=== PATIENT | male | born 1925 | race Caucasian/White ===

== ENCOUNTER 2016-07-05 13:55 | Inpatient (IN) | payer OTHER ==
[~2016-07-05] VITALS: Ht 185.4 cm; Wt 87.2 kg
--- NOTE | 2016-07-05 16:21 | ED CLINICAL REPORT ---
Clinical Report - Physicians/Mid Levels [facility] [address] [place] [address] 07/05/2016 13:59 Patient: LAMBERTO DODD Time Seen: 14:03. Arrived- By ambulance. Historian- patient and EMS personnel. Evaluation limited Pt can offer no history due to altered mental status - all history is from EMS, Nursing facility and family and review of old records. History limited by altered mental status and dementia. Physical Exam limited by altered mental status and dementia. HISTORY OF PRESENT ILLNESS Chief Complaint: ABDOMINAL PAIN. At its maximum, severity described as moderate. When seen in the E.D., it was gone. Modifying factors. Not worsened by anything. Not relieved by anything. It is described as "pain". No radiation. It is described as generalized in location. This started just prior to arrival and is still present. It was abrupt in onset and has been waxing/waning. No nausea, vomiting or diarrhea. (CODE STATUS: DNR with Limited Interventions). Similar symptoms previously: None. Recent medical care: The patient was seen recently at another facility in the emergency department and hospitalized. ( Seen at [facility] from April 24 - for Acute ischemic colitis). REVIEW OF SYSTEMS The patient has had constipation and difficulty breathing. No black stools, hematemesis, urinary frequency, bloody stools or fever. No headache or sore throat. He has had difficulty with urination. It has been similar to previous symptoms. He has had skin rash (has chronic right calcaneal lesion). All systems otherwise negative, except as recorded above. PAST HISTORY PCP: Dr Barnhart (at [facility]); Jagdeep Patel PROBLEMS: Paroxysmal Atrial Fibrillation Hypertension. Hyperlipidemia- pure hypertriglyceridemia. Diabetes Mellitus Type 2. Gastroesophageal Reflux Disease. Hypotension episodes. Chronic Kidney Disease (stage 3 per old records).l GERD. Anxiety Reaction. Alzheimer's Disease. COPD - Chronic Obstructive Pulmonary Disease. Rheumatoid Arthritis. Rheumatic Heart Disease with tricuspid insufficiency. Thrombocytopenia. Anemia UTI's with history of BPH and with history bladder neck obstruction Cardiac Pacer "Vascular disorder of the intestines" Gout. ASCVD. Abdominal pain syndromes Polymyalgia Rheumatica Giant Cell Arteritis. 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 Dementia. Medications: ZyrTEC Allergy Oral. Zocor Oral. Zetia Oral. Vitamin B Complex Oral. Tranxene-T Oral. Spiriva HandiHaler Inhalation. ProAir HFA Inhalation. PredniSONE Oral. Potassimin Oral. Plavix Oral. Pantoprazole Sodium Oral. NexIUM Oral. Metoprolol Tartrate Oral. Metoprolol Succinate ER Oral. Lisinopril Oral. Lantus Subcutaneous. Glipizide Oral. Flonase Nasal. Flomax Oral. Ferrous Gluconate Oral. Econazole Nitrate External. Claritin Oral. Aspir-Low Oral. Allopurinol Oral. Allergies: No Known Drug Allergy. SOCIAL HISTORY Former smoker. Residence: [facility] Is a local resident. Resides in a alf. Marital status: . ADDITIONAL NOTES The nursing notes have been reviewed. PHYSICAL EXAM Vital Signs: 07/05/2016 14:06 BP: 79/50. HR: 89. RR: 18. O2 saturation: 100%. Temp: 98 F. Appearance: Lethargic. Patient in moderate distress. Eyes: Pale conjunctivae. Eyes normal inspection. No scleral icterus. ENT: Dry mucous membranes present. No pharyngeal erythema or tonsillar exudate. Neck: Normal inspection. CVS: 2/6 systolic murmur located at the left sternal border. No extra heart sounds. Respiratory: No respiratory distress. Mild rales present bilaterally. Chest nontender. Abdomen: Nontender. No mass. Obese. No rebound tenderness or guarding. Back: No CVA tenderness. Skin: No cyanosis. Skin warm and dry. Pallor. (Right calcaneal area decubitus ulcer). No diaphoresis. Extremities: Bilateral mild edema of the lower extremities. (Right calcaneal area decubitus ulcer). Neuro: Altered mental status: stuporous. Patient responds to pain only. Eyes open spontaneously. Best verbal response: inappropriate speech. Best motor response: localizes to pain. No motor deficit. (moves all 4's equally). LABS, X-RAYS, AND EKG EKG: EKG time: (14:11). Atrial fibrillation (ventricular rate 80). Left anterior fascicular block. RBBB. Non-specific ST segment / T wave abnormalities. The study has been interpreted contemporaneously by me. The EKG appears to be a good tracing. Rhythm Strip #1: Atrial fibrillation. No ectopy. Non-specific ST segment / T-wave abnormalities. Chest X-ray: Infiltrate in the left lung base. Consistent with pneumonia and scarring. Cardiomegaly. (IMPRESSION: 1. Left basilar scarring versus infiltrate. Correlate with outside chest x-rays 2. Mild cardiomegaly 3. CABG and pacemaker). Views: AP (portable). Technique: good. The X-rays were interpreted contemporaneously by me. A comparison with prior films (similar to report of CXR finding done at [facility] on 04/29/2016). Laboratory Tests: UA-Culture if indicated: (LORY: 07/05/2016 15:48) ( [facility] 07/05/2016 16:31) Final results Test Result Flag Units (Reference) URINE COLOR YELLOW URINE APPEARANCE HAZY URINE GLUCOSE NEGATIVE (NEGATIVE) URINE BILIRUBIN NEGATIVE (NEGATIVE) URINE KETONE NEGATIVE (NEGATIVE) URINE SPECIFIC GRAVITY 1.010 (1.010-1.030) URINE PH 5.5 (5.0-8.0) URINE PROTEIN NEGATIVE (NEGATIVE) URINE UROBILINOGEN 0.2 EU/dL (0.2-1.0) URINE NITRITE NEGATIVE (NEGATIVE) URINE BLOOD NEGATIVE (NEGATIVE) URINE LEUK ESTERASE POSITIVE (NEGATIVE) URINE RBC NONE SEEN rbc/hpf (0-1) URINE WBC 50-75 wbc/hpf (0-1) URINE EPITHELIAL CELLS 1-3 EPI/hpf (0-5) URINE BACTERIA NONE SEEN (NONE SEEN) URINE COMMENT CULTURE INDICATED URINE CULTURES ARE SET-UP BASED ON THE FOLLOWING CRITERIA:POSITIVE NITRITEPOSITIVE LEUKOCYTE ESTERASEGREATER THAN 10 WHITE BLOOD CELLSMODERATE (2+) OR GREATER BACTERIA CBC w Diff: (LORY: 07/05/2016 14:09) ( [facility] 07/05/2016 14:54) Final results Test Result Flag Units (Reference) WHITE BLOOD COUNT 8.0 K/uL (4.5-11.5) RED BLOOD COUNT 2.67 L M/uL (4.50-5.90) HEMOGLOBIN 7.3 L gm/dL (13.5-17.5) HEMATOCRIT 22.9 L % (41.0-53.0) MEAN CELL VOLUME 86 fL (80-100) MEAN CORPUSCULAR HGB 28 pg (26-34) MEAN CORPUSCULAR HGB CONC 32 g/dL (31-37) RED CELL DISTRIBUTION WIDTH 15.4 H % (11.6-14.8) PLATELET COUNT 307 K/uL (150-400) NEUTROPHIL % 77.5 H % (50-75) LYMPH % 13.7 L % (25-40) MONO % 6.3 % (3-14) EOSINOPHIL % 2.3 % (0-4) BASOPHIL % 0.2 % (0-2) PT with INR: (LORY: 07/05/2016 14:09) ( [facility] 07/05/2016 15:06) Final results Test Result Flag Units (Reference) INR 1.1 (0.8-1.2) Low Intensity Therapy: INR 1.5-2.0 PT range 18.5-23.1Mod.Intensity Therapy: INR 2.0-3.0 PT range 23.1-31.5High Intensity Therapy: INR 2.5-3.5 PT range 27.4-35.5High Intensity Therapy 2: INR 3.0-4.0 PT range 31.5-39.3 Urine Drug Screen: (LORY: 07/05/2016 15:48) ( [facility] 07/05/2016 16:20) Final results Test Result Flag Units (Reference) AMPHETAMINE/METHAMPHETAMINE NEGATIVE (NEGATIVE) BARBITURATE NEGATIVE (NEGATIVE) BENZODIAZEPINE NEGATIVE (NEGATIVE) CANNABINOID NEGATIVE (NEGATIVE) COCAINE NEGATIVE (NEGATIVE) ECSTASY NEGATIVE (NEGATIVE) METHADONE NEGATIVE (NEGATIVE) OPIATE NEGATIVE (NEGATIVE) The urine drug screen is a qualitative screening test fordrug overdose and abuse. All screen results should beconsidered as presumptive.Drugs screened for are as follows:BenzodiazepinesCocaineAmphetamines/MetamphetaminesTHC (Tetrahydrocannabinol)OpiatesBarbituratesEcstasyMethadonePositive results are unconfirmed. For confirmation, notifythe lab for the specimen to be sent to the reference lab.All confirmations must be performed by a differentmethodology.The ingestion of natural herbal and plant productscontaining Ephedra/Ephedra metabolites can produce in urineone or more substances capable of cross reacting withamphetamine/methamphetamine immunoassays. These testsprovide a preliminary result only. A more specificalternative chemical method must be used to obtain aconfirmed analytical result. BNP: (LORY: 07/05/2016 14:09) ( [facility] 07/05/2016 15:14) Final results Test Result Flag Units (Reference) B-TYPE NATRIURETIC PEPTIDE 78.4 pg/ml (5-100) Lactate, Serum: (LORY: 07/05/2016 15:05) ( [facility] 07/05/2016 15:53) Final results Test Result Flag Units (Reference) LACTIC ACID 1.6 mmol/L (0.4-2.0) CHEM 13 PANEL: (LORY: 07/05/2016 14:09) ( [facility] 07/05/2016 15:18) Final results Test Result Flag Units (Reference) GLUCOSE 248 H mg/dL (70-110) BUN 43 H mg/dL (7-18) CREATININE 1.9 H mg/dL (0.6-1.3) Estimated GFR 35.73 mL/min Estimated GFR- 43.31 mL/min Note: Persistent reduction over 3 months in eGFR<60 mL/min/1.73 m2 defines CKD. Patients with eGFR values>=60 mL/min/1.73 m2 may also have CKD if evidence ofpersistent proteinuria. Additional information may be foundat www.kidney.org. SODIUM 148 H mmol/L (136-145) POTASSIUM 4.1 mmol/L (3.5-5.1) CHLORIDE 114 H mmol/L (98-107) CARBON DIOXIDE 23 mmol/L (21-32) CALCIUM 8.5 mg/dL (8.5-10.1) TOTAL PROTEIN 6.5 g/dL (6.4-8.2) ALBUMIN 2.7 L g/dL (3.3-5.0) BILIRUBIN, TOTAL 0.3 mg/dL (0.0-1.0) ALKALINE PHOSPHATASE 60 U/L (46-116) AST (SGOT) 16 U/L (15-37) ALT (SGPT) 23 U/L (12-78) MAGNESIUM 1.8 mg/dL (1.8-2.4) LIPASE 42 L U/L (73-393) AMYLASE 20 L U/L (25-115) CPK 72 U/L (24-260) TROPONIN I <0.05 ng/mL (0.00-1.5) TROPONIN REFERENCE RANGE:<0.1 NEGATIVE0.1-1.5 INDETERMINANT>1.5 POSITIVE . Bedside Tests: Glucose: moderate hyperglycemia - 326 (performed at bedside). Microbiology: Urine culture ordered. Pulse Oximetry: 07/05/2016 14:06 O2 saturation: 100%. Interpretation: normal. PROGRESS AND PROCEDURES Course of Care: Normal Saline 1 liter IVPB given. Ceftriaxone 2 gm IVP given. Pt is DNR and family wishes comfort measures and IV fluids and possible antibiotics, but no surgery or invasive procedures. I have discussed performing CT of the abdomen, but as this will not change our management, the family elects to hold this for now. 17:29 07/05/16. Pt appears to be noting some discomfort from the Tan - we have a good measure of his UOP now and a sample obtained and will remove the catheter and monitor his symptoms. Family is aware of the seriousness of the situation and the likelihood of mesenteric ischemia causing bowel and ultimately the patients demise, but they insist that the goal should be comfort. Discussed case with hospitalist, (Fetty call returned 16:16). Reviewed test results. Agreed upon treatment plan. Health care provider will see patient in ED. Patient/family counseled. Old medical records ordered. (from [facility]). Transition orders written. Disposition: Admitted to Acute Care. Condition: serious and guarded. CLINICAL IMPRESSION Acute generalized abdominal pain of unknown cause (likely mesenteric ischemia). Chronic Alzheimer's disease. No behavioral disturbance. Acute mental status change with lethargy. , paroxysmal atrial fibrillation with controlled rate. Moderate dehydration. Acute urinary tract infection with cystitis. Chronic, moderately well controlled type 2 diabetes with hyperglycemia. No coma. Severe chronic anemia. Possible bacterial pneumonia. Right calcaneal area decubitus ulcer. (Electronically signed by Varun Garcia DO 07/05/2016 21:49)
--- NOTE | 2016-07-05 16:21 | ED ORDER SUMMARY ---
..... Patient: LAMBERTO DODD OrderSheet [facility] VisitID: [id number] [address] [place] [address] 89y, M Registration Date/Time: 07/05/2016 ORDER SHEET Weight: 81.6 kg (estimated) Allergies: No Known Drug Allergy GENERAL ORDERS: Chest 1V Ur[facility] ([facility] (Ack 14:12 TBergley) (14:52 Sara) Nursing Administrator (Continuous) (14:07/05/2016 [facility] (Ack 14:12 TBergley) (14:15 JSimbeck R.N.) UA-Culture if indicated [facility] ([facility]ck 14:12 TBergley) (14:34 Shannan) Amylase Urgent (14:07/05/2016 [facility] (Ack 14:12 TBergley) (14:15 JSimbeck R.N.) Lipase Urgent (14:07/05/2016 [facility] (Ack 14:12 TBergley) (14:15 JSimbeck R.N.) PT with INR [facility] ([facility]ck 14:12 TBergley) (14:15 JSimbeck R.N.) Cardiac Panel Stat (14:07/05/2016 [facility] (Ack 14:12 TBergley) (14:15 JSimbeck R.N.) Urine Drug Screen Urgent (14:07/05/2016 [facility] (Ack 14:12 TBergley) (14:34 EBharoldo) Lactate, Serum Urgent (14:07/05/2016 [facility] (Ack 14:12 TBergley) (15:04 TBergley) BNP Urgent (14:07/05/2016 PHdechinson DO) (Ack 14:12 TBergley) (14:16 JSimbeck R.N.) NPO (14:07/05/2016 PHutchinson DO) (Ack 14:12 TBergley) (14:15 Jorge Alberto R.N.) EKG - ER Stat (14:08 07/05/2016 [facility] DO) (Ack 14:12 TBergley) (14:15 Annelieseeck R.N.) POC Glucose (14:08 07/05/2016 [facility]) (Ack 14:12 TBergley) (14:34 [facility] Tan Catheter (14:08 07/05/2016 [facility] DO) (Ack 14:12 TBergley) (14:34 [facility] Old Records (from [facility] - d/c summary; H&P) (14:31 07/05/2016 [facility]) (Ack 14:35 TBergley) (16:15 TBergley) Call (Place call to): (Dr Winston) (16:14 07/05/2016 [facility]) (16:15 TBergley) - (Remove Tan) (17:20 07/05/2016 [facility]) (Ack 17:21 TBergley) (17:23 Magalie R.N.) MEDICATION ORDERS: IV FLUIDS: IV NS : initial bolus 250 mL (1000 mL/hr), then 250 mL/hr for X3 (NOW) (14:07 07/05/2016 [facility]) (14:18 Jorge Alberto R.N.) Ceftriaxone IV 2 gm/50mL (NOW) (16:21 07/05/2016 [facility]) (16:27 [facility]) ORDER SHEET NOTES: [Electronically signed by Deborah Sanchez (17:50 07/05/2016)] [Electronically signed by Varun Garcia DO (21:49 07/05/2016)] [Electronically locked/signed by Deborah Sanchez (17:50 07/05/2016)]
--- NOTE | 2016-07-05 16:21 | ED NURSING NOTES ---
Clinical Report - Nurses [facility] [address] [place] [address] 07/05/2016 13:59 Patient: LAMBERTO DODD TRIAGE Triage time 1400. Acuity: LEVEL 3. Chief Complaint: ABDOMINAL PAIN and (bloated). Alert. --14:18 Deborah Sanchez 14:05 07/05/16. BP: 79/50. HR: 89. RR: 18. O2 saturation: 100%. Temp: 98 F. Pain level now 0/10. --14:18 Deborah Sanchez. Weight: 81.6 kg estimated. Height/Length: 71 inches Estimated. BMI: 25.1. --14:05 Deborah Sanchez. Medications Allopurinol Oral. --14:08 Deborah Sanchez Aspir-Low Oral. --14:08 Deborah Sanchez Claritin Oral. --14:08 Deborah Sanchez Econazole Nitrate External. --14:08 Deborah Sanchez Ferrous Gluconate Oral. --14:08 Deborah Sanchez Flomax Oral. --14:09 Deborah Sanchez Flonase Nasal. --14:09 Deborah Sanchez Glipizide Oral. --14:09 Deborah Sanchez Lantus Subcutaneous. --14:09 Deborah Sanchez Lisinopril Oral. --14:09 Deborah Sanchez Metoprolol Succinate ER Oral. --14:09 Deborah Sanchez Metoprolol Tartrate Oral. --14:10 Deborah Sanchez NexIUM Oral. --14:10 Deborah Sanchez Pantoprazole Sodium Oral. --14:11 Deborah Sanchez Plavix Oral. --14:11 Deborah Sanchez Potassimin Oral. --14:11 Deborah Sanchez PredniSONE Oral. --14:11 Deborah Sanchez ProAir HFA Inhalation. --14:11 Deborah Sanchez Spiriva HandiHaler Inhalation. --14:12 Deborah Sanchez Tranxene-T Oral. --14:13 Deborah Sanchez Vitamin B Complex Oral. --14:13 Deborah Sanchez Zetia Oral. --14:13 Deborah Sanchez Zocor Oral. --14:13 Deborah Sanchez ZyrTEC Allergy Oral. --14:13 Deborah Sanchez. Allergies No Known Drug Allergy. --14:14 Deborah Sanchez. History Arrived by EMS. Historian: EMS. This started just prior to arrival. Onset. (1 hours ago). Treatment TENT ASSEMBLER: None. SKIN INTEGRITY ASSESSMENT: Skin integrity risk assessment was performed. Risk factors identified include restricted mobility, non ambulatory, complete positioning assistance and sensory deficit present. NUTRITIONAL RISK ASSESSMENT: The nutritional risk assessment revealed no deficiencies. FUNCTIONAL ASSESSMENT: Functional assessment performed: requires total care with the activities of daily living; communication barrier present- this communication barrier is an ongoing problem; uses wheelchair; cognitive impairment- Alzheimer's disease- this cognitive impairment is an ongoing problem. LEARNING NEEDS ASSESSMENT: The learning needs assessment could not be obtained due to the patient's condition. --14:18 Deborah Sanchez. PROBLEMS: Hypertension. Hyperlipidemia. Diabetes Mellitus Type 2. Gastroesophageal Reflux Disease. Hypotension. Anxiety Reaction. Alzheimer's Disease. COPD - Chronic Obstructive Pulmonary Disease. Rheumatoid Arthritis. Rheumatic Heart Disease. --14:16 Deborah Sanchez. ADDITIONAL SURGERIES: Cardiac Surgery. --14:16 Deborah Sanchez. Interventions ID band on patient. To treatment room. --14:18 Deborah Sanchez. PHYSICAL ASSESSMENT To room via stretcher. Patient gowned. GENERAL / NEURO / PSYCH: Alert. Appears in no acute distress. The patient is disoriented to person, place, time and situation. HEENT: Mucous membranes are pink. RESPIRATORY: Respirations not labored. Breath sounds within normal limits. CVS: Normal sinus rhythm noted. Capillary refill is greater than 2 seconds. GI / : Abdominal distention. Abdomen nontender. Guarding present. SKIN: Skin is warm and dry. --14:18 Deborah Sanchez. NURSING PROGRESS NOTES 14:05 07/05/2016 Site #1 started via IV in the right upper arm with an 20g angiocath, with aseptic technique and good blood return; one attempt. Blood drawn: rainbow set. Labeled in the presence of the patient and sent to the lab. Saline lock flushed with 10 mL saline (Started by THELMA Mccoy). --14:17 Mario Benitez R.N. 14:10 07/05/2016 Started bag #1 250 mL IV Fluids IV NS (Saline); bolus of 250 mL over 15 minute(s) via site #1. Allergies verified and confirmed 5 rights. IV patency established. IV site checked: no pain, redness, or swelling. IV flushed thoroughly pre- and post-medication administration. --14:18 Mario Benitez R.N. Call light placed in reach. Side rails up x 2. Bed placed in lowest position. Brakes of bed on. Patient ready for evaluation- chart flagged. --14:19 Deborah Sanchez ( bedside blood sugar 326). --14:27 Deborah Sanchez The patient is resting quietly. Overall patient status is the same- he states feels the same. --14:46 Deborah Sanchez 14:45 07/05/16. BP: 104/68. HR: 89. RR: 18. O2 saturation: 98%. --14:46 Deborah Sanchez 16:27 07/05/2016 Started 2 gm of Ceftriaxone IVPB in bag #1 50 mL; at 100 mL/hr over 30 minute(s) via site #1; Allergies verified and confirmed 5 rights. IV patency established. IV site checked: no pain, redness, or swelling. IV flushed thoroughly pre- and post-medication administration. --16:27 Deborah Sanchez 16:37 07/05/16. ( H&P unable to be filled out by pt, will have family assist when they return.). --16:38 Sarai Aviles Reassessment after intervention. He is calm. Overall patient status is improved- he states feels the same. Patient waiting for admit bed. --16:57 Deborah Sanchez 16:56 07/05/16. BP: 99/55. HR: 100. RR: 18. O2 saturation: 98%. --16:57 Deborah Sanchez ( Catheter removed. Pt tolerated well.). --17:27 Darius Mills R.N. DISPOSITION / DISCHARGE Condition at departure: improved and stable. Transported via stretcher by transport team. Report was given to a nurse via a phone call. Report included patient's care, treatment, medications, reviewed medication reconcilliation, and condition (including any recent changes or anticipated changes). All questions were answered. Report was acknowledged and care was transferred. Patient's personal items; items were transported with the patient. --17:43 Deborah Sanchez 17:30 07/05/2016 Ceftriaxone IVPB Discontinued: bag #2 completed. Total amount infused: 50 mL. IV patency established. IV site checked: no pain, redness, or swelling. IV flushed thoroughly. --17:50 Deborah Sanchez 17:49 07/05/2016 IV Fluids IV NS Discontinued: STOPPED upon admission. Total amount infused: 1000 mL. IV patency established. IV site checked: no pain, redness, or swelling. IV flushed thoroughly. --17:50 Deborah Sanchez Departure time: 1750. --17:50 Deborah Sanchez. Locked/Released at 07/05/2016 17:50 by Deborah Sanchez,
--- NOTE | 2016-07-05 16:21 | ED CLINICAL REPORT ---
Clinical Report - Physicians/Mid Levels [facility] [address] [address] 07/05/2016 13:59 Patient: LAMBERTO DODD Time Seen: 14:03. Arrived- By ambulance. Historian- patient and EMS personnel. Evaluation limited Pt can offer no history due to altered mental status - all history is from EMS, Nursing facility and family and review of old records. History limited by altered mental status and dementia. Physical Exam limited by altered mental status and dementia. HISTORY OF PRESENT ILLNESS Chief Complaint: ABDOMINAL PAIN. At its maximum, severity described as moderate. When seen in the E.D., it was gone. Modifying factors. Not worsened by anything. Not relieved by anything. It is described as "pain". No radiation. It is described as generalized in location. This started just prior to arrival and is still present. It was abrupt in onset and has been waxing/waning. No nausea, vomiting or diarrhea. (CODE STATUS: DNR with Limited Interventions). Similar symptoms previously: None. Recent medical care: The patient was seen recently at another facility in the emergency department and hospitalized. ( Seen at [facility] from April 24 - for Acute ischemic colitis). REVIEW OF SYSTEMS The patient has had constipation and difficulty breathing. No black stools, hematemesis, urinary frequency, bloody stools or fever. No headache or sore throat. He has had difficulty with urination. It has been similar to previous symptoms. He has had skin rash (has chronic right calcaneal lesion). All systems otherwise negative, except as recorded above. PAST HISTORY PCP: Dr Barhnart (at [facility]); Jagdeep Patel PROBLEMS: Paroxysmal Atrial Fibrillation Hypertension. Hyperlipidemia- pure hypertriglyceridemia. Diabetes Mellitus Type 2. Gastroesophageal Reflux Disease. Hypotension episodes. Chronic Kidney Disease (stage 3 per old records).l GERD. Anxiety Reaction. Alzheimer's Disease. COPD - Chronic Obstructive Pulmonary Disease. Rheumatoid Arthritis. Rheumatic Heart Disease with tricuspid insufficiency. Thrombocytopenia. Anemia UTI's with history of BPH and with history bladder neck obstruction Cardiac Pacer "Vascular disorder of the intestines" Gout. ASCVD. Abdominal pain syndromes Polymyalgia Rheumatica Giant Cell Arteritis. 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 Dementia. Medications: ZyrTEC Allergy Oral. Zocor Oral. Zetia Oral. Vitamin B Complex Oral. Tranxene-T Oral. Spiriva HandiHaler Inhalation. ProAir HFA Inhalation. PredniSONE Oral. Potassimin Oral. Plavix Oral. Pantoprazole Sodium Oral. NexIUM Oral. Metoprolol Tartrate Oral. Metoprolol Succinate ER Oral. Lisinopril Oral. Lantus Subcutaneous. Glipizide Oral. Flonase Nasal. Flomax Oral. Ferrous Gluconate Oral. Econazole Nitrate External. Claritin Oral. Aspir-Low Oral. Allopurinol Oral. Allergies: No Known Drug Allergy. SOCIAL HISTORY Former smoker. Residence: [facility] Is a local resident. Resides in a snf. Marital status: . ADDITIONAL NOTES The nursing notes have been reviewed. PHYSICAL EXAM Vital Signs: 07/05/2016 14:06 BP: 79/50. HR: 89. RR: 18. O2 saturation: 100%. Temp: 98 F. Appearance: Lethargic. Patient in moderate distress. Eyes: Pale conjunctivae. Eyes normal inspection. No scleral icterus. ENT: Dry mucous membranes present. No pharyngeal erythema or tonsillar exudate. Neck: Normal inspection. CVS: 2/6 systolic murmur located at the left sternal border. No extra heart sounds. Respiratory: No respiratory distress. Mild rales present bilaterally. Chest nontender. Abdomen: Nontender. No mass. Obese. No rebound tenderness or guarding. Back: No CVA tenderness. Skin: No cyanosis. Skin warm and dry. Pallor. (Right calcaneal area decubitus ulcer). No diaphoresis. Extremities: Bilateral mild edema of the lower extremities. (Right calcaneal area decubitus ulcer). Neuro: Altered mental status: stuporous. Patient responds to pain only. Eyes open spontaneously. Best verbal response: inappropriate speech. Best motor response: localizes to pain. No motor deficit. (moves all 4's equally). LABS, X-RAYS, AND EKG EKG: EKG time: (14:11). Atrial fibrillation (ventricular rate 80). Left anterior fascicular block. RBBB. Non-specific ST segment / T wave abnormalities. The study has been interpreted contemporaneously by me. The EKG appears to be a good tracing. Rhythm Strip #1: Atrial fibrillation. No ectopy. Non-specific ST segment / T-wave abnormalities. Chest X-ray: Infiltrate in the left lung base. Consistent with pneumonia and scarring. Cardiomegaly. (IMPRESSION: 1. Left basilar scarring versus infiltrate. Correlate with outside chest x-rays 2. Mild cardiomegaly 3. CABG and pacemaker). Views: AP (portable). Technique: good. The X-rays were interpreted contemporaneously by me. A comparison with prior films (similar to report of CXR finding done at [facility] on 04/29/2016). Laboratory Tests: UA-Culture if indicated: (LORY: 07/05/2016 15:48) ( [facility] 07/05/2016 16:31) Final results Test Result Flag Units (Reference) URINE COLOR YELLOW URINE APPEARANCE HAZY URINE GLUCOSE NEGATIVE (NEGATIVE) URINE BILIRUBIN NEGATIVE (NEGATIVE) URINE KETONE NEGATIVE (NEGATIVE) URINE SPECIFIC GRAVITY 1.010 (1.010-1.030) URINE PH 5.5 (5.0-8.0) URINE PROTEIN NEGATIVE (NEGATIVE) URINE UROBILINOGEN 0.2 EU/dL (0.2-1.0) URINE NITRITE NEGATIVE (NEGATIVE) URINE BLOOD NEGATIVE (NEGATIVE) URINE LEUK ESTERASE POSITIVE (NEGATIVE) URINE RBC NONE SEEN rbc/hpf (0-1) URINE WBC 50-75 wbc/hpf (0-1) URINE EPITHELIAL CELLS 1-3 EPI/hpf (0-5) URINE BACTERIA NONE SEEN (NONE SEEN) URINE COMMENT CULTURE INDICATED URINE CULTURES ARE SET-UP BASED ON THE FOLLOWING CRITERIA:POSITIVE NITRITEPOSITIVE LEUKOCYTE ESTERASEGREATER THAN 10 WHITE BLOOD CELLSMODERATE (2+) OR GREATER BACTERIA CBC w Diff: (LORY: 07/05/2016 14:09) ( [facility] 07/05/2016 14:54) Final results Test Result Flag Units (Reference) WHITE BLOOD COUNT 8.0 K/uL (4.5-11.5) RED BLOOD COUNT 2.67 L M/uL (4.50-5.90) HEMOGLOBIN 7.3 L gm/dL (13.5-17.5) HEMATOCRIT 22.9 L % (41.0-53.0) MEAN CELL VOLUME 86 fL (80-100) MEAN CORPUSCULAR HGB 28 pg (26-34) MEAN CORPUSCULAR HGB CONC 32 g/dL (31-37) RED CELL DISTRIBUTION WIDTH 15.4 H % (11.6-14.8) PLATELET COUNT 307 K/uL (150-400) NEUTROPHIL % 77.5 H % (50-75) LYMPH % 13.7 L % (25-40) MONO % 6.3 % (3-14) EOSINOPHIL % 2.3 % (0-4) BASOPHIL % 0.2 % (0-2) PT with INR: (LORY: 07/05/2016 14:09) ( [facility] 07/05/2016 15:06) Final results Test Result Flag Units (Reference) INR 1.1 (0.8-1.2) Low Intensity Therapy: INR 1.5-2.0 PT range 18.5-23.1Mod.Intensity Therapy: INR 2.0-3.0 PT range 23.1-31.5High Intensity Therapy: INR 2.5-3.5 PT range 27.4-35.5High Intensity Therapy 2: INR 3.0-4.0 PT range 31.5-39.3 Urine Drug Screen: (LORY: 07/05/2016 15:48) ( [facility] 07/05/2016 16:20) Final results Test Result Flag Units (Reference) AMPHETAMINE/METHAMPHETAMINE NEGATIVE (NEGATIVE) BARBITURATE NEGATIVE (NEGATIVE) BENZODIAZEPINE NEGATIVE (NEGATIVE) CANNABINOID NEGATIVE (NEGATIVE) COCAINE NEGATIVE (NEGATIVE) ECSTASY NEGATIVE (NEGATIVE) METHADONE NEGATIVE (NEGATIVE) OPIATE NEGATIVE (NEGATIVE) The urine drug screen is a qualitative screening test fordrug overdose and abuse. All screen results should beconsidered as presumptive.Drugs screened for are as follows:BenzodiazepinesCocaineAmphetamines/MetamphetaminesTHC (Tetrahydrocannabinol)OpiatesBarbituratesEcstasyMethadonePositive results are unconfirmed. For confirmation, notifythe lab for the specimen to be sent to the reference lab.All confirmations must be performed by a differentmethodology.The ingestion of natural herbal and plant productscontaining Ephedra/Ephedra metabolites can produce in urineone or more substances capable of cross reacting withamphetamine/methamphetamine immunoassays. These testsprovide a preliminary result only. A more specificalternative chemical method must be used to obtain aconfirmed analytical result. BNP: (LORY: 07/05/2016 14:09) ( [facility] 07/05/2016 15:14) Final results Test Result Flag Units (Reference) B-TYPE NATRIURETIC PEPTIDE 78.4 pg/ml (5-100) Lactate, Serum: (LORY: 07/05/2016 15:05) ( [facility] 07/05/2016 15:53) Final results Test Result Flag Units (Reference) LACTIC ACID 1.6 mmol/L (0.4-2.0) CHEM 13 PANEL: (LORY: 07/05/2016 14:09) ( [facility] 07/05/2016 15:18) Final results Test Result Flag Units (Reference) GLUCOSE 248 H mg/dL (70-110) BUN 43 H mg/dL (7-18) CREATININE 1.9 H mg/dL (0.6-1.3) Estimated GFR 35.73 mL/min Estimated GFR- 43.31 mL/min Note: Persistent reduction over 3 months in eGFR<60 mL/min/1.73 m2 defines CKD. Patients with eGFR values>=60 mL/min/1.73 m2 may also have CKD if evidence ofpersistent proteinuria. Additional information may be foundat www.kidney.org. SODIUM 148 H mmol/L (136-145) POTASSIUM 4.1 mmol/L (3.5-5.1) CHLORIDE 114 H mmol/L (98-107) CARBON DIOXIDE 23 mmol/L (21-32) CALCIUM 8.5 mg/dL (8.5-10.1) TOTAL PROTEIN 6.5 g/dL (6.4-8.2) ALBUMIN 2.7 L g/dL (3.3-5.0) BILIRUBIN, TOTAL 0.3 mg/dL (0.0-1.0) ALKALINE PHOSPHATASE 60 U/L (46-116) AST (SGOT) 16 U/L (15-37) ALT (SGPT) 23 U/L (12-78) MAGNESIUM 1.8 mg/dL (1.8-2.4) LIPASE 42 L U/L (73-393) AMYLASE 20 L U/L (25-115) CPK 72 U/L (24-260) TROPONIN I <0.05 ng/mL (0.00-1.5) TROPONIN REFERENCE RANGE:<0.1 NEGATIVE0.1-1.5 INDETERMINANT>1.5 POSITIVE . Bedside Tests: Glucose: moderate hyperglycemia - 326 (performed at bedside). Microbiology: Urine culture ordered. Pulse Oximetry: 07/05/2016 14:06 O2 saturation: 100%. Interpretation: normal. PROGRESS AND PROCEDURES Course of Care: Normal Saline 1 liter IVPB given. Ceftriaxone 2 gm IVP given. Pt is DNR and family wishes comfort measures and IV fluids and possible antibiotics, but no surgery or invasive procedures. I have discussed performing CT of the abdomen, but as this will not change our management, the family elects to hold this for now. 17:29 07/05/16. Pt appears to be noting some discomfort from the Tan - we have a good measure of his UOP now and a sample obtained and will remove the catheter and monitor his symptoms. Family is aware of the seriousness of the situation and the likelihood of mesenteric ischemia causing bowel and ultimately the patients demise, but they insist that the goal should be comfort. Discussed case with hospitalist, (Fetty call returned 16:16). Reviewed test results. Agreed upon treatment plan. Health care provider will see patient in ED. Patient/family counseled. Old medical records ordered. (from [facility]). Transition orders written. Disposition: Admitted to Acute Care. Condition: serious and guarded. CLINICAL IMPRESSION Acute generalized abdominal pain of unknown cause (likely mesenteric ischemia). Chronic Alzheimer's disease. No behavioral disturbance. Acute mental status change with lethargy. , paroxysmal atrial fibrillation with controlled rate. Moderate dehydration. Acute urinary tract infection with cystitis. Chronic, moderately well controlled type 2 diabetes with hyperglycemia. No coma. Severe chronic anemia. Possible bacterial pneumonia. Right calcaneal area decubitus ulcer. (Electronically signed by Varun Garcia DO 07/05/2016 21:49)
--- NOTE | 2016-07-05 16:21 | ED ORDER SUMMARY ---
..... Patient: LAMBERTO DODD OrderSheet Formerly [facility] VisitID: [id number] [address] [address] [place] [address] 89y, M Registration Date/Time: 07/05/2016 ORDER SHEET Weight: 81.6 kg (estimated) Allergies: No Known Drug Allergy GENERAL ORDERS: Chest 1V Urgent ([facility]:07[facility]05/2016 [facility]) (Ack 14:12 TBergley) (14:52 Sara) Prospecting Observer (Continuous) (14:07/05/2016 [facility]) (Ack 14:12 TBergley) (14:15 JSimbeck R.N.) UA-Culture if indicated Urgent (14:07/05/2016 [facility] Jackson Streetson DO) (Ack 14:12 TBergley) (14:34 Shannan) Amylase Urgent (14:07/05/2016 [facility]) (Ack 14:12 TBergley) (14:15 JSimbeck R.N.) Lipase Urgent (14:07/05/2016 [facility]) (Ack 14:12 TBergley) (14:15 JSimbeck R.N.) PT with INR [facility] ([facility]ck 14:12 TBergley) (14:15 JSimbeck R.N.) Cardiac Panel Stat (14:07/05/2016 [facility] Jackson Streetson DO) (Ack 14:12 TBergley) (14:15 JSimbeck R.N.) Urine Drug Screen Urgent (14:07/05/2016 [facility]) (Ack 14:12 TBergley) (14:34 EBharoldo) Lactate, Serum Urgent (14:07/05/2016 [facility]) (Ack 14:12 TBergley) (15:04 TBergley) BNP Urgent (14:07/05/2016 PH[facility] DO) (Ack 14:12 TBergley) (14:16 JSimbeck R.N.) NPO (14:07/05/2016 PH[facility] DO) (Ack 14:12 TBergley) (14:15 Jorge Alberto R.N.) EKG - ER Stat (14:08 07/05/2016 [facility] DO) (Ack 14:12 TBergley) (14:15 Annelieseeck R.N.) POC Glucose (14:08 07/05/2016 [facility] Jackson Streetson DO) (Ack 14:12 TBergley) (14:[facility] Tan Catheter (14:08 07/05/2016 [facility] DO) (Ack 14:12 TBergley) (14:34 [facility] Old Records (from [facility] - d/c summary; H&P) (14:31 07/05/2016 [facility]) (Ack 14:35 TBergley) (16:15 TBergley) Call (Place call to): (Dr Winston) (16:14 07/05/2016 [facility]) (16:15 TBergley) - (Remove Tan) (17:20 07/05/2016 [facility]) (Ack 17:21 TBergley) (17:23 Magalie R.N.) MEDICATION ORDERS: IV FLUIDS: IV NS : initial bolus 250 mL (1000 mL/hr), then 250 mL/hr for X3 (NOW) (14:07 07/05/2016 [facility]) (14:18 Jorge Alberto R.N.) Ceftriaxone IV 2 gm/50mL (NOW) (16:21 07/05/2016 [facility]) (16:27 [facility]) ORDER SHEET NOTES: [Electronically signed by Deborah Sanchez (17:50 07/05/2016)] [Electronically signed by Varun Garcia DO (21:49 07/05/2016)] [Electronically locked/signed by Deborah Sanchez (17:50 07/05/2016)]
--- NOTE | 2016-07-05 16:27 | DIAGNOSTIC IMAGING REPORT ---
PROCEDURE: XR CHEST 1 VIEW INDICATION: SHORTNESS OF BREATH TECHNIQUE: Portable AP view 02:46 p.m. COMPARISON: None. FINDINGS: Median sternotomy, CABG and dual lead pacemaker. Mild cardiomegaly. Normal pulmonary vascularity. Left basilar scarring versus infiltrate. Thorax is normal. IMPRESSION: 1. Left basilar scarring versus infiltrate. Correlate with outside chest x-rays 2. Mild cardiomegaly 3. CABG and pacemaker
[2016-07-05 18:25] VITALS: BP 104/45
--- NOTE | 2016-07-05 19:21 | Progress Note ---
Subjective General Admission History and Physical Examination Patient Name: Patrick Meng Patient ID: [id number] Admission Date: July 05, 2016 Primary Care Provider: [facility] Attending Physician: Noah Winston M.D. Admitting Physician: Nick Royal M.D. Code Status: No CODE Room: 203 SUBJECTIVE Historian: Family, ER Reliability: non verbal Chief Complaint: Abdominal pain Patient was sent by medic from [facility] History of Present Illness: The patient is a 89-year-old white male with a significant past make a history of who presented to [facility] emergency room on the day of admission secondary abdominal pain. [facility] ER evaluation was consistent with exacerbation of pain related to a potential ischemic mesentery and hypotension. Secondary to the above, the patient was admitted for further evaluation and treatment by Nick Royal M.D. The patient is seen today in the emergency department. Patient is nonverbal. No family members are currently present in the room. A call was attempted to family without a return phone call. Emergency department had conversation with family and much of the history today is reflecting the conversation. Patient has a prior history of ischemic mesentery. Patient was brought here from [facility] due to hypotension. Patient was found to have lower blood pressure than typically noted. Emergency department discussion with the family members. No signs of fever or chills. Patient was initially found with systolic in the 80 range. Patient was given boluses of normal saline. When surrounding her completed. In addition, patient is found to be nonverbal with mental status change in the setting of known Alzheimer dementia. The family members recommended no heroic intervention, Family is elected not to perform invasive or high and procedure imaging.. Rather supportive cares. Monitor. Patient will continue the Rocephin 1 g IV daily. Attempt to return back to [facility] when stable. PAST MEDICAL HISTORY Illnesses: 1. COPD 2. Generalized anxiety disorder 3. Paroxysmal atrial fibrillation. 4. Hypertension. 5. Hypertensive 6. Chronic kidney disease stage III. 7. GERD. 8. Alzheimer dementia. 9. COPD 10. Anemia. 11. Vascular disorder of the testing. 12. Polymyalgia rheumatica. 13. Giant cell arteritis. 14. Myocardial infarct. 15. CVA, unspecified. 16. Peripheral vascular disease Allergies: 1. No Known Drug Allergies Medications: 1. Albuterol MDI 2 inhalations 4 times a day 2. Albuterol nebs 2.5 mg every 6 hours when necessary shortness of breath 3. Zocor. 4. Zetia 5. Zyrtec for allergy. 7. Prednisone by mouth tabs taper. 6. Potassium supplementation 7. Metoprolol tartrate and succinate. 8. Lantus subcutaneous 9. Glipizide. 10. Flonase. 11. Flomax. 12. Lantus subcutaneous. 13. Pantoprazole. 14. Lisinopril 10 mg by mouth daily Surgery: CABG Endoscopy Others Uninformed on surgeries or procedures Injuries: 1. Multiple injuries; uninformed on dates of injuries. Hospitalizations: 1. Recent discharge from [facility]. Patient in [facility] for supportive care FAMILY HISTORY Parents Histories are not known. Other significant family history: None SOCIAL HISTORY 1. Marital Status: 2. Shinto: Unknown 3. Education: uknown 4. Employment History: 5. Occupational health exposures: None known HABITS 1. Tobacco: None 2. Drugs: None 3. Alcohol: None 4. Caffeine: uknown none HEALTH SUPERVISION Item/Test 1. No recent health maintenance IMMUNIZATIONS: 1. Pneumococcal: Unknown 2. Influenza: Unknown 3. Tetanus: Unknown ADVANCED DIRECTIVES: 1. Living well: Yes 2. POLST: None known 3. Code Status: No code 4. Durable Power Mainframe Systems Administrator Health care: Family member, daughter 5. Donor card: No unknown REVIEW OF SYSTEMS Remarkable for those things stated in the history of present illness and past medical history. Seventeen point review of system completed with the following notable findings: General: Fatigue, weakness Respiratory: Shortness of breath, cough, wheezing, asthma/COPD Psychological: Anxiety/panic attacks Constitutional Denies: Chills, Sweats. Physical Exam Vital Signs / I&Os Vital Signs Date Time Temp Pulse Resp B/P Pulse O2 O2 Flow FiO2 Ox Delivery Rate 07/05 1825 98.2 99 16 104/45 97 Room Air General Appearance Mild distress, eyes closed, noisy breathing, mostly moaning, HEENT dry mucous membranes Lungs Clear to auscultation Neck No masses Cardiovascular Normal S1 and S2 Abdomen Protuberant, mildly distended, abdomen is tight Skin No Breakdown Neurological Normal speech LAB Results Laboratory Tests 07/05 07/05 07/05 07/05 1408 1409 1409 1505 Chemistry Plasma Sodium (136 - 145 mmol/L) 148 Plasma Potassium (3.5 - 5.1 mmol/L) 4.1 Plasma Chloride (98 - 107 mmol/L) 114 CO2 (Enzymatic) (21 - 32 mmol/L) 23 BUN (7 - 18 mg/dL) 43 Creatinine (0.6 - 1.3 mg/dL) 1.9 Est GFR ( Amer) (mL/min) 43.31 Est GFR (Non-Af Amer) (mL/min) 35.73 Glucose (70 - 110 mg/dL) 248 Lactic Acid (0.4 - 2.0 mmol/L) 1.6 Plasma Calcium (8.5 - 10.1 mg/dL) 8.5 Plasma Magnesium (1.8 - 2.4 mg/dL) 1.8 Total Bilirubin (0.0 - 1.0 mg/dL) 0.3 AST (15 - 37 U/L) 16 ALT (12 - 78 U/L) 23 Alkaline Phosphatase (46 - 116 U/L) 60 Creatine Kinase (24 - 260 U/L) 72 Troponin (0.00 - 1.5 ng/mL) <0.05 B-Natriuretic Peptide (5 - 100 pg/ml) 78.4 Total Protein (6.4 - 8.2 g/dL) 6.5 Albumin (3.3 - 5.0 g/dL) 2.7 Amylase (25 - 115 U/L) Cancelled 20 Lipase (73 - 393 U/L) Cancelled 42 Coagulation INR (0.8 - 1.2) 1.1 Hematology WBC (4.5 - 11.5 K/uL) 8.0 RBC (4.50 - 5.90 M/uL) 2.67 Hgb (13.5 - 17.5 gm/dL) 7.3 Hct (41.0 - 53.0 %) 22.9 MCV (80 - 100 fL) 86 MCH (26 - 34 pg) 28 RDW (11.6 - 14.8 %) 15.4 Neut % (Auto) (50 - 75 %) 77.5 Lymph % (Auto) (25 - 40 %) 13.7 Mcclain % (Auto) (3 - 14 %) 6.3 Eos % (Auto) (0 - 4 %) 2.3 Baso % (Auto) (0 - 2 %) 0.2 Plt Count, EDTA (150 - 400 K/uL) 307 PUBS MCHC (31 - 37 g/dL) 32 07/05 1548 Toxicology Urine Opiates Screen (NEGATIVE) NEGATIVE Urine Methadone Screen (NEGATIVE) NEGATIVE Ur Barbiturates Screen (NEGATIVE) NEGATIVE U Amphetamin/Meth Scrn (NEGATIVE) NEGATIVE MDMA (Ecstasy) Screen (NEGATIVE) NEGATIVE U Benzodiazepines Scrn (NEGATIVE) NEGATIVE Urine Cocaine Screen (NEGATIVE) NEGATIVE U Cannabinoids Screen (NEGATIVE) NEGATIVE Urines Urine Color YELLOW Urine Appearance HAZY Urine pH (5.0 - 8.0) 5.5 Ur Specific [place] (1.010 - 1.030) 1.010 Urine Protein (NEGATIVE) NEGATIVE Urine Ketones (NEGATIVE) NEGATIVE Urine Blood (NEGATIVE) NEGATIVE Urine Nitrite (NEGATIVE) NEGATIVE Urine Bilirubin (NEGATIVE) NEGATIVE Urine Urobilinogen (0.2 - 1.0 EU/dL) 0.2 Ur Leukocyte Esterase (NEGATIVE) POSITIVE Urine RBC (0 - 1 rbc/hpf) NONE SEEN Urine WBC (0 - 1 wbc/hpf) 50-75 Ur Epithelial Cells (0 - 5 EPI/hpf) 1-3 Urine Bacteria (NONE SEEN) NONE SEEN Urine Glucose (NEGATIVE) NEGATIVE Urine Comment CULTURE INDICATED Microbiology Date/Time Procedure - Status Source Growth 07/06 1547 Urine Culture - RECD URINE CC Imaging Chest x-ray 07/05/2016 1. Left basilar scarring versus infiltrate. Correlate with outside chest x-rays 2. Mild cardiomegaly 3. CABG and pacemaker Assessment and Plan Problem List 1. Abdominal pain Plan Abdominal pain with poor by mouth. Likely related to the ischemic mesentery. A history of CAD and peripheral vascular disease. Unlikely that this will be solved during this hospitalization. Family wants to have supportive care only and no invasive procedures or testing. It will be difficult and challenging for patient to maintain nutrition. May consider liquid diet starting over the next 24 hours Pain control. We'll continue with the Tylenol 650 mg every 4-6 hours for pain. Maintain adequate hydration. Patient will be hydrated and stabilized. Monitor blood pressure, heart rate. Return to nursing facility when stable. 2. Vascular disorder of intestine Plan Likely ischemic changes in the vasculature of the bowel. Patient is at risk for ischemia to the bowel, leading to pathological change. She will should be limited. Until healing occurs. Invasive procedures are not planned at this time. 3. Urinary tract infection Plan Continue with the ceftriaxone 1 g every 24 hours. This can be easily converted to a by mouth drug. No meantime, we'll continue the IV protocol until discharge. Found to have leukoesterase and bacteria in the urine. 4. Altered mental status, unspecified Plan Mental status changes in the setting of illness and dementia. Unclear as to what the patient on his. Patient is clearly not interactive at this time. Illness will need to be stabilized in order to adequately see improvement in the mental status. Once this occurs and we'll assess the status at that time. 5. Dementia Plan Monitor for any further Progressive changes. E&M Codes Rounding: Obsv-Comp/High/[id number]
--- NOTE | 2016-07-05 21:49 | ED MED RECONCILIATION SUMMARY ---
Patient: LAMBERTO DODD Medication Reconciliation Report [facility] VisitID: [id number] [address] [place] [address] 89y, M Registration Date/Time: 07/05/2016 Weight: 81.6 kg Height/Length: 71 in. BMI: 25.1 ALLERGIES: No Known Drug Allergy The patient's Home Medications are listed below: THE FOLLOWING MEDICATIONS NEED TO BE RECONCILED: Allopurinol Oral Aspir-Low Oral Claritin Oral Econazole Nitrate External Ferrous Gluconate Oral Flomax Oral Flonase Nasal Glipizide Oral Lantus Subcutaneous Lisinopril Oral Metoprolol Succinate ER Oral Metoprolol Tartrate Oral NexIUM Oral Pantoprazole Sodium Oral Plavix Oral Potassimin Oral PredniSONE Oral ProAir HFA Inhalation Spiriva HandiHaler Inhalation Tranxene-T Oral Vitamin B Complex Oral Zetia Oral Zocor Oral ZyrTEC Allergy Oral The source(s) of the original Home Medication information: Not obtained. The following Medications were given to the patient in the Emergency Department: IV NS IV Fluids bolus 250 mL over 15 minute(s), administered: 07/05/2016 2:10:00 PM Ceftriaxone [IVPB] IVPB bolus 0, then 2 gm 100 mL/hr, administered: 07/05/2016 4:27:00 PM The following Medications were prescribed to the patient: None.
--- NOTE | 2016-07-05 21:49 | ED DISCHARGE INSTRUCTIONS ---
Patient: LAMBERTO DODD General Instructions [facility] VisitID: [id number] [address] [place] [address] 89y, M Registration Date/Time: 07/05/2016 Acute generalized abdominal pain of unknown cause (likely mesenteric ischemia). Chronic Alzheimer's disease. No behavioral disturbance. Acute mental status change with lethargy. , paroxysmal atrial fibrillation with controlled rate. Moderate dehydration. Acute urinary tract infection with cystitis. Chronic, moderately well controlled type 2 diabetes with hyperglycemia. No coma. Severe chronic anemia. Right calcaneal area decubitus ulcer. (Electronically signed by Varun Garcia DO 07/05/2016 21:49)
--- NOTE | 2016-07-05 21:49 | ED MAR SUMMARY ---
..... Medication Administration Record [facility] [address] [place] [address] Patient: LAMBERTO DODD Visit ID: [id number] 89y, M Weight: 81.6 kg Height/Length: 71 in BMI: 25.1 ALLERGIES: No Known Drug Allergy Start 14:10 07/05/2016 Mario Benitez R.N., Stop 17:49 07/05/2016 Deborah Sanchez, Medication Administered: IV NS (SALINE), Dose: IV Fluids, Bolus: 250 mL over 15 minute(s), Dispensed: 250 mL bag, Site: #1 right upper arm. Medication Ordered: IV NS : initial bolus 250 mL (1000 mL/hr), then 250 mL/hr for X3 (NOW). Start 16:27 07/05/2016 Deborah Sanchez,, Stop 17:30 07/05/2016 Deborah Sanchez, Medication Administered: CEFTRIAXONE [IVPB], Dose: 2 gm IVPB over 30 minute(s), Rate: 100 mL/hr, Dispensed: 50 mL bag, Site: #1 right upper arm. Medication Ordered: Ceftriaxone IV 2 gm/50mL (NOW).
--- NOTE | 2016-07-05 21:49 | ED MED RECONCILIATION SUMMARY ---
Patient: LAMBERTO DODD Medication Reconciliation Report [facility] VisitID: [id number] [address] [place] [address] 89y, M Registration Date/Time: 07/05/2016 Weight: 81.6 kg Height/Length: 71 in. BMI: 25.1 ALLERGIES: No Known Drug Allergy The patient's Home Medications are listed below: THE FOLLOWING MEDICATIONS NEED TO BE RECONCILED: Allopurinol Oral Aspir-Low Oral Claritin Oral Econazole Nitrate External Ferrous Gluconate Oral Flomax Oral Flonase Nasal Glipizide Oral Lantus Subcutaneous Lisinopril Oral Metoprolol Succinate ER Oral Metoprolol Tartrate Oral NexIUM Oral Pantoprazole Sodium Oral Plavix Oral Potassimin Oral PredniSONE Oral ProAir HFA Inhalation Spiriva HandiHaler Inhalation Tranxene-T Oral Vitamin B Complex Oral Zetia Oral Zocor Oral ZyrTEC Allergy Oral The source(s) of the original Home Medication information: Not obtained. The following Medications were given to the patient in the Emergency Department: IV NS IV Fluids bolus 250 mL over 15 minute(s), administered: 07/05/2016 2:10:00 PM Ceftriaxone [IVPB] IVPB bolus 0, then 2 gm 100 mL/hr, administered: 07/05/2016 4:27:00 PM The following Medications were prescribed to the patient: None.
--- NOTE | 2016-07-05 21:49 | ED DISCHARGE INSTRUCTIONS ---
Patient: LAMBERTO DODD General Instructions [facility] VisitID: [id number] [address] [address] 89y, M Registration Date/Time: 07/05/2016 Acute generalized abdominal pain of unknown cause (likely mesenteric ischemia). Chronic Alzheimer's disease. No behavioral disturbance. Acute mental status change with lethargy. , paroxysmal atrial fibrillation with controlled rate. Moderate dehydration. Acute urinary tract infection with cystitis. Chronic, moderately well controlled type 2 diabetes with hyperglycemia. No coma. Severe chronic anemia. Right calcaneal area decubitus ulcer. (Electronically signed by Varun Garcia DO 07/05/2016 21:49)
--- NOTE | 2016-07-05 21:49 | ED MAR SUMMARY ---
..... Medication Administration Record [facility] [address] [place] [address] Patient: LAMBERTO DODD Visit ID: [id number] 89y, M Weight: 81.6 kg Height/Length: 71 in BMI: 25.1 ALLERGIES: No Known Drug Allergy Start 14:10 07/05/2016 Mario Benitez R.N., Stop 17:49 07/05/2016 Deborah Sanchez, Medication Administered: IV NS (SALINE), Dose: IV Fluids, Bolus: 250 mL over 15 minute(s), Dispensed: 250 mL bag, Site: #1 right upper arm. Medication Ordered: IV NS : initial bolus 250 mL (1000 mL/hr), then 250 mL/hr for X3 (NOW). Start 16:27 07/05/2016 Deborah Sanchez,, Stop 17:30 07/05/2016 Deborah Sanchez, Medication Administered: CEFTRIAXONE [IVPB], Dose: 2 gm IVPB over 30 minute(s), Rate: 100 mL/hr, Dispensed: 50 mL bag, Site: #1 right upper arm. Medication Ordered: Ceftriaxone IV 2 gm/50mL (NOW).
[2016-07-05 23:05] VITALS: BP 112/50
[2016-07-06] VITALS (14 sets, daily range): BP systolic 95–161; BP diastolic 47–83
--- NOTE | 2016-07-06 07:08 | Progress Note ---
Subjective General Note Date: July 06, 2016 Admission Date: July 05, 2016 Hospital Day: 2 PCP: Jagdeep Castañeda M.D. Status: Observation, ACU Advanced Directive: NO CODE Room: 203-A Brief History: The patient is a 89-year-old white male with a significant past make a history of who presented to [facility] emergency room on the day of admission secondary abdominal pain. [facility] ER evaluation was consistent with exacerbation of pain related to a potential ischemic mesentery and hypotension. Secondary to the above, the patient was admitted for further evaluation and treatment by Nick Royal M.D. For other history present illness, past medical history, family history, social history, review of systems, and admission physical examination please see the patient's history and physical examination and ER visit note in the patient's medical record. Subjective: The patient remains confused at this time. Slightly agitated. Only oriented to self Patient requests: None Medications and Allergies Medications Current Medications Sig/Rico Start time Last Medication Dose Route Stop Time Status Admin Clopidogrel Bisulfate 75 MG DAILY 07/06 0900 AC PO Pantoprazole Sodium 40 MG DAILY@0600 07/06 0600 AC 07/06 IV 0604 Insulin Human Lispro See Dose Q6HR 07/06 0000 AC Insts (1) SC Acetaminophen 650 MG Q4H PRN 07/05 2200 AC PO Insulin Glargine 4 UNITS QHS 07/05 2100 AC 07/05 SC 2137 Metoprolol Tartrate 2.5 MG Q6HR 07/05 1800 AC 07/06 IV 0605 Ondansetron HCl 4 MG Q6H PRN 07/05 1745 AC IV Sodium Chloride 1,000 ML ASDIRECTED 07/05 1745 AC 07/06 IV 0604 Ondansetron HCl 4 MG Q4H PRN 07/05 1630 AC IV Dose Instructions: (1)Insulin Human Lispro: LOW DOSE: ACCUCHECK AND SLIDING SCALE >>To change sliding scale DISCONTINUE this order and enter a NEW order. Thanks< Allergies Coded Allergies: NKA (07/05/16) Physical Exam Vital Signs / I&Os Vital Signs Date Time Temp Pulse Resp B/P Pulse O2 O2 Flow FiO2 Ox Delivery Rate 07/06 0622 99.9 20 95/49 94 07/06 0217 98.1 110 18 148/68 93 Room Air 07/06 0001 Room Air 07/05 2305 98.1 95 18 112/50 96 Room Air 07/05 2251 Room Air 07/05 1825 98.2 99 16 104/45 97 Room Air I&O 07/06 0000 07/05 1600 07/05 0800 Intake Total 0 Output Total Balance 0 General Appearance Alert, uncooperative, confused Lungs Scattered rhonchi otherwise clear to auscultation Cardiovascular Regular rate and rhythm, Normal S1 and S2 Abdomen Normal bowel sounds, Soft, possible mild tenderness on examination. No rebound present Extremities No cyanosis, No clubbing Neurological Cranial nerves intact, No lateralizing signs Psych/Mental Status Confused, , slightly agitated LAB Results Laboratory Tests 07/06 07/05 07/05 07/05 0507 1548 1505 1409 Chemistry Plasma Sodium (136 - 145 mmol/L) 150 Plasma Potassium (3.5 - 5.1 mmol/L) 3.5 Plasma Chloride (98 - 107 mmol/L) 116 CO2 (Enzymatic) (21 - 32 mmol/L) 21 BUN (7 - 18 mg/dL) 35 Creatinine (0.6 - 1.3 mg/dL) 1.5 Est GFR ( Amer) (mL/min) 56.89 Est GFR (Non-Af Amer) (mL/min) 46.94 Glucose (70 - 110 mg/dL) 123 Lactic Acid (0.4 - 2.0 mmol/L) 1.6 Plasma Calcium (8.5 - 10.1 mg/dL) 8.2 Plasma Magnesium (1.8 - 2.4 mg/dL) 1.8 Total Bilirubin (0.0 - 1.0 mg/dL) 0.2 AST (15 - 37 U/L) 17 ALT (12 - 78 U/L) 18 Alkaline Phosphatase (46 - 116 U/L) 56 B-Natriuretic Peptide (5 - 100 pg/ml) 78.4 Total Protein (6.4 - 8.2 g/dL) 6.0 Albumin (3.3 - 5.0 g/dL) 2.5 Coagulation INR (0.8 - 1.2) 1.2 Hematology WBC (4.5 - 11.5 K/uL) 9.2 RBC (4.50 - 5.90 M/uL) 2.44 Hgb (13.5 - 17.5 gm/dL) 6.8 Hct (41.0 - 53.0 %) 20.8 MCV (80 - 100 fL) 85 MCH (26 - 34 pg) 28 RDW (11.6 - 14.8 %) 15.9 Neut % (Auto) (50 - 75 %) 68.9 Lymph % (Auto) (25 - 40 %) 17.7 [place] % (Auto) (3 - 14 %) 7.4 Eos % (Auto) (0 - 4 %) 5.7 Baso % (Auto) (0 - 2 %) 0.3 Plt Count, EDTA (150 - 400 K/uL) 266 PUBS MCHC (31 - 37 g/dL) 33 Toxicology Urine Opiates Screen (NEGATIVE) NEGATIVE Urine Methadone Screen (NEGATIVE) NEGATIVE Ur Barbiturates Screen (NEGATIVE) NEGATIVE U Amphetamin/Meth Scrn (NEGATIVE) NEGATIVE MDMA (Ecstasy) Screen (NEGATIVE) NEGATIVE U Benzodiazepines Scrn (NEGATIVE) NEGATIVE Urine Cocaine Screen (NEGATIVE) NEGATIVE U Cannabinoids Screen (NEGATIVE) NEGATIVE Urines Urine Color YELLOW Urine Appearance HAZY Urine pH (5.0 - 8.0) 5.5 Ur Specific [place] (1.010 - 1.030) 1.010 Urine Protein (NEGATIVE) NEGATIVE Urine Ketones (NEGATIVE) NEGATIVE Urine Blood (NEGATIVE) NEGATIVE Urine Nitrite (NEGATIVE) NEGATIVE Urine Bilirubin (NEGATIVE) NEGATIVE Urine Urobilinogen (0.2 - 1.0 EU/dL) 0.2 Ur Leukocyte Esterase (NEGATIVE) POSITIVE Urine RBC (0 - 1 rbc/hpf) NONE SEEN Urine WBC (0 - 1 wbc/hpf) 50-75 Ur Epithelial Cells (0 - 5 EPI/hpf) 1-3 Urine Bacteria (NONE SEEN) NONE SEEN Urine Glucose (NEGATIVE) NEGATIVE Urine Comment CULTURE INDICATED 07/05 07/05 1409 1408 Chemistry Plasma Sodium (136 - 145 mmol/L) 148 Plasma Potassium (3.5 - 5.1 mmol/L) 4.1 Plasma Chloride (98 - 107 mmol/L) 114 CO2 (Enzymatic) (21 - 32 mmol/L) 23 BUN (7 - 18 mg/dL) 43 Creatinine (0.6 - 1.3 mg/dL) 1.9 Est GFR ( Amer) (mL/min) 43.31 Est GFR (Non-Af Amer) (mL/min) 35.73 Glucose (70 - 110 mg/dL) 248 Plasma Calcium (8.5 - 10.1 mg/dL) 8.5 Plasma Magnesium (1.8 - 2.4 mg/dL) 1.8 Total Bilirubin (0.0 - 1.0 mg/dL) 0.3 AST (15 - 37 U/L) 16 ALT (12 - 78 U/L) 23 Alkaline Phosphatase (46 - 116 U/L) 60 Creatine Kinase (24 - 260 U/L) 72 Troponin (0.00 - 1.5 ng/mL) <0.05 Total Protein (6.4 - 8.2 g/dL) 6.5 Albumin (3.3 - 5.0 g/dL) 2.7 Amylase (25 - 115 U/L) 20 Cancelled Lipase (73 - 393 U/L) 42 Cancelled Coagulation INR (0.8 - 1.2) 1.1 Hematology WBC (4.5 - 11.5 K/uL) 8.0 RBC (4.50 - 5.90 M/uL) 2.67 Hgb (13.5 - 17.5 gm/dL) 7.3 Hct (41.0 - 53.0 %) 22.9 MCV (80 - 100 fL) 86 MCH (26 - 34 pg) 28 RDW (11.6 - 14.8 %) 15.4 Neut % (Auto) (50 - 75 %) 77.5 Lymph % (Auto) (25 - 40 %) 13.7 [place] % (Auto) (3 - 14 %) 6.3 Eos % (Auto) (0 - 4 %) 2.3 Baso % (Auto) (0 - 2 %) 0.2 Plt Count, EDTA (150 - 400 K/uL) 307 PUBS MCHC (31 - 37 g/dL) 32 Microbiology Date/Time Procedure - Status Source Growth 07/05 1548 Urine Culture - RECD URINE CC Imaging Chest x-ray IMPRESSION: 1. Left basilar scarring versus infiltrate. Correlate with outside chest x-rays 2. Mild cardiomegaly 3. CABG and pacemaker Dictated by: SAM BACK MD D: FLORENTIN;07/05/16 2746 Assessment and Plan Problem List 1. Mesenteric ischemia Status Chronic Onset Date Unknown Plan -Patient with history of mesenteric ischemia/ischemic colitis -Mild abdominal pain not problematic at this time -Stool melanotic, waiting stool Hemoccult -Conservative measures only per family. No further diagnostics. Comfort measures and hospice care only at this point 2. Dementia Plan -Long-standing dementia -Comfort measures/hospice care 3. Altered mental status, unspecified Plan -See above -Altered mental status/dementia -Comfort measures as noted above 4. Urinary tract infection Plan -Patient with findings of UTI -Family wishes comfort measures only -Hold antimicrobials 5. Anemia Status Chronic Onset Date Unknown Plan -We'll transfuse 2 units packed RBCs -No further interventions -No further monitoring 6. Abdominal pain Plan -Improved -Pain control at this time -No further diagnostics Current status: Fair, stable Anticipated discharge date: Anticipated discharge 1-2 days Anticipated discharge placement: detention facility Patient care time: Time spent in chart review, patient interview, physical exam, CPOE, and care documentation: 25 minutes Visit to patient today: 1 Complexity of care: Moderate E&M Codes Rounding: Inpt-Moderate/[id number]
[2016-07-06] MEDS ORDERED: ALLOPURINOL100 MG PO (12:02)
[2016-07-06] MEDS ORDERED: ASPIRIN ADULT L81 MG PO (12:04)
[2016-07-07] VITALS (8 sets, daily range): BP systolic 109–173; BP diastolic 49–108
[2016-07-07] MEDS ORDERED: FLOMAX0.4 MG PO (04:12)
[2016-07-07] MEDS ORDERED: FLONASE AL50 MCG/ACT (04:24)
[2016-07-07] MEDS ORDERED: GLIPIZIDE5 MG PO (04:24)
[2016-07-07] MEDS ORDERED: ZESTRIL2.5 MG PO (04:25)
[2016-07-07] MEDS ORDERED: PROTONIX40 MG PO (04:26)
[2016-07-07] MEDS ORDERED: PLAVIX75 MG PO (04:26)
[2016-07-07] MEDS ORDERED: [UNRECOGNIZED DRUG - OTHER] PO (04:26)
[2016-07-07] MEDS ORDERED: PREDNISONE5 MG PO (04:27)
[2016-07-07] MEDS ORDERED: SPIRIVA18 MCG INH (04:27)
[2016-07-07] MEDS ORDERED: VITAMIN D-31000 UNIT PO (04:28)
[2016-07-07] MEDS ORDERED: ZETIA10 MG PO (04:28)
[2016-07-07] MEDS ORDERED: VITAMIN B-121000 MCG PO (04:28)
[2016-07-07] MEDS ORDERED: ZOCOR40 MG PO (04:29)
[2016-07-07] MEDS ORDERED: METOPROLOL TART25 MG PO (04:30)
[2016-07-07] MEDS ORDERED: ZYRTEC ALLERGY10 MG PO (04:30)
[2016-07-07] MEDS ORDERED: ACETAMINOPHEN325 MG PO (04:31)
[2016-07-07] MEDS ORDERED: DULCOLAX10 MG PR (04:32)
[2016-07-07] MEDS ORDERED: GERI-LANTA PO (04:32)
[2016-07-07] MEDS ORDERED: LIQUITEARS OP (04:33)
[2016-07-07] MEDS ORDERED: NITROSTAT0.4 MG SL (04:34)
[2016-07-07] MEDS ORDERED: PROAIR HFA IN (04:34)
[2016-07-07] MEDS ORDERED: MILK OF MA400 MG/5 M PO (04:34)
[2016-07-07] MEDS ORDERED: SENNA-TABS8.6 MG PO (04:35)
--- NOTE | 2016-07-07 06:47 | Progress Note ---
Subjective General Note Date: July 07, 2016 Admission Date: July 05, 2016 Hospital Day: 3 PCP: Billy Barnhart M.D. Status: Inpatient, ACU Advanced Directive: NO CODE Room: 203-A Brief History: The patient is a 89-year-old white male with a significant past make a history of who presented to [facility] emergency room on the day of admission secondary abdominal pain. [facility] ER evaluation was consistent with exacerbation of pain related to a potential ischemic mesentery and hypotension. Secondary to the above, the patient was admitted for further evaluation and treatment by Nick Royal M.D. For other history present illness, past medical history, family history, social history, review of systems, and admission physical examination please see the patient's history and physical examination and ER visit note in the patient's medical record. Subjective: The patient remains confused at this time. Slightly lethargic this a.m. Only oriented to self Patient requests: None Medications and Allergies Medications Current Medications Sig/Rico Start time Last Medication Dose Route Stop Time Status Admin Insulin Human Lispro See Dose ACHS 07/06 2127 AC Insts (1) SC Hydromorphone HCl 0.5 MG Q1H PRN 07/06 1600 AC 07/07 IV 0501 Hydromorphone HCl See Dose Q1H PRN 07/06 1530 AC Insts (2) IV Clopidogrel Bisulfate 75 MG DAILY 07/06 0900 AC 07/06 PO 0841 Pantoprazole Sodium 40 MG DAILY@0600 07/06 0600 AC 07/07 IV 0512 Acetaminophen 650 MG Q4H PRN 07/05 2200 AC 07/06 PO 2305 Insulin Glargine 4 UNITS QHS 07/05 2100 AC 07/06 SC 2101 Metoprolol Tartrate 2.5 MG Q6HR 07/05 1800 AC 07/07 IV 0511 Ondansetron HCl 4 MG Q6H PRN 07/05 1745 AC IV Sodium Chloride 1,000 ML ASDIRECTED 07/05 1745 AC 07/06 IV 1524 Dose Instructions: (1)Insulin Human Lispro: LOW DOSE: ACCUCHECK AND SLIDING SCALE >>To change sliding scale DISCONTINUE this order and enter a NEW order. Thanks< (2)Hydromorphone HCl: 0.5 - 1 MG Allergies Coded Allergies: NKA (07/05/16) Physical Exam Vital Signs / I&Os Vital Signs Date Time Temp Pulse Resp B/P Pulse O2 O2 Flow FiO2 Ox Delivery Rate 07/07 0556 96 Room Air 07/07 0536 99.3 64 18 109/49 91 Room Air 07/07 0230 98.4 94 16 153/61 98 Room Air 07/07 0223 98.1 98 16 153/61 98 Room Air 07/07 0033 Room Air 07/06 2349 99.9 69 16 136/72 98 Room Air 07/06 2300 99.9 75 18 136/65 95 Room Air 07/06 2224 99.7 76 22 148/71 98 Room Air 07/06 2132 98.1 89 20 151/64 99 Room Air 07/06 2058 98.1 89 22 147/73 97 Room Air 07/06 2030 97.9 78 22 131/83 97 Room Air 07/06 2000 Room Air 07/06 1847 97.9 103 22 130/54 97 Room Air 07/06 1755 98.2 99 20 161/68 96 07/06 1706 98.1 71 20 130/47 94 07/06 1636 97.9 93 20 144/54 99 07/06 1621 97.3 87 20 114/47 96 07/06 1143 97.9 07/06 1057 101 20 132/75 97 07/06 0901 Room Air I&O 07/07 0000 07/06 1600 07/06 0800 Intake Total 930 0 1069 Output Total 800 700 960 Balance 130 -700 109 General Appearance No acute distress Lungs Scattered rhonchi. Otherwise clear to auscultation Cardiovascular Regular rate and rhythm Abdomen Normal bowel sounds, Soft, No discernible tenderness Extremities No cyanosis, No clubbing Psych/Mental Status Confused, slightly lethargic LAB Results Laboratory Tests 07/07 0607 Chemistry Plasma Sodium Pending Plasma Potassium Pending Plasma Chloride Pending CO2 (Enzymatic) Pending BUN Pending Creatinine Pending Est GFR ( Amer) Pending Est GFR (Non-Af Amer) Pending Glucose Pending Plasma Calcium Pending Hematology WBC (4.5 - 11.5 K/uL) 8.9 RBC (4.50 - 5.90 M/uL) 2.98 Hgb (13.5 - 17.5 gm/dL) 8.3 Hct (41.0 - 53.0 %) 25.8 MCV (80 - 100 fL) 87 MCH (26 - 34 pg) 28 RDW (11.6 - 14.8 %) 14.8 Neut % (Auto) (50 - 75 %) 72.9 Lymph % (Auto) (25 - 40 %) 11.8 [place] % (Auto) (3 - 14 %) 7.6 Eos % (Auto) (0 - 4 %) 7.2 Baso % (Auto) (0 - 2 %) 0.5 Plt Count, EDTA (150 - 400 K/uL) 249 PUBS MCHC (31 - 37 g/dL) 32 Assessment and Plan Problem List 1. Mesenteric ischemia Status Chronic Onset Date Unknown Plan -No significant pain at this time -Clear liquid diet -Plan discharge to [facility] with comfort measures/hospice care 2. Anemia Status Chronic Onset Date Unknown Plan -Improved -No further therapy. -Plan discharge to penitentiary facility with comfort measures/hospice care 3. Dementia Plan -Stable -No further evaluation 4. Altered mental status, unspecified Plan -See above -No further evaluation 5. Urinary tract infection Plan -Patient received Rocephin IV -No further evaluation/no ongoing treatment -Patient to be discharged to comfort measures only, hospice care Current status: Fair, improved Anticipated discharge date: When discharge planning has arrange for placement for comfort care/hospice. Anticipated discharge placement: [facility] facility Patient care time: Time spent in chart review, patient interview, physical exam, CPOE, and care documentation: Greater than 30 minutes Visit to patient today: 1 Complexity of care: Moderate The patient's family has requested the patient be placed on comfort measures only. They wish placement in penitentiary facility with comfort measures/ hospice care. Awaiting discharge planning's placement of patient at this time. No medical indication for further hospitalization. E&M Codes Rounding: Inpt-Moderate/72290 Discharge: Inpt >30 min spent/68030
--- NOTE | 2016-07-07 06:47 | Progress Note ---
Subjective General Note Date: July 07, 2016 Admission Date: July 05, 2016 Hospital Day: 3 PCP: Billy Barnhart M.D. Status: Inpatient, ACU Advanced Directive: NO CODE Room: 203-A Brief History: The patient is a 89-year-old white male with a significant past make a history of who presented to [facility] emergency room on the day of admission secondary abdominal pain. [facility] ER evaluation was consistent with exacerbation of pain related to a potential ischemic mesentery and hypotension. Secondary to the above, the patient was admitted for further evaluation and treatment by Nick Royal M.D. For other history present illness, past medical history, family history, social history, review of systems, and admission physical examination please see the patient's history and physical examination and ER visit note in the patient's medical record. Subjective: The patient remains confused at this time. Slightly lethargic this a.m. Only oriented to self Patient requests: None Medications and Allergies Medications Current Medications Sig/Rico Start time Last Medication Dose Route Stop Time Status Admin Insulin Human Lispro See Dose ACHS 07/06 2127 AC Insts (1) SC Hydromorphone HCl 0.5 MG Q1H PRN 07/06 1600 AC 07/07 IV 0501 Hydromorphone HCl See Dose Q1H PRN 07/06 1530 AC Insts (2) IV Clopidogrel Bisulfate 75 MG DAILY 07/06 0900 AC 07/06 PO 0841 Pantoprazole Sodium 40 MG DAILY@0600 07/06 0600 AC 07/07 IV 0512 Acetaminophen 650 MG Q4H PRN 07/05 2200 AC 07/06 PO 2305 Insulin Glargine 4 UNITS QHS 07/05 2100 AC 07/06 SC 2101 Metoprolol Tartrate 2.5 MG Q6HR 07/05 1800 AC 07/07 IV 0511 Ondansetron HCl 4 MG Q6H PRN 07/05 1745 AC IV Sodium Chloride 1,000 ML ASDIRECTED 07/05 1745 AC 07/06 IV 1524 Dose Instructions: (1)Insulin Human Lispro: LOW DOSE: ACCUCHECK AND SLIDING SCALE >>To change sliding scale DISCONTINUE this order and enter a NEW order. Thanks< (2)Hydromorphone HCl: 0.5 - 1 MG Allergies Coded Allergies: NKA (07/05/16) Physical Exam Vital Signs / I&Os Vital Signs Date Time Temp Pulse Resp B/P Pulse O2 O2 Flow FiO2 Ox Delivery Rate 07/07 0556 96 Room Air 07/07 0536 99.3 64 18 109/49 91 Room Air 07/07 0230 98.4 94 16 153/61 98 Room Air 07/07 0223 98.1 98 16 153/61 98 Room Air 07/07 0033 Room Air 07/06 2349 99.9 69 16 136/72 98 Room Air 07/06 2300 99.9 75 18 136/65 95 Room Air 07/06 2224 99.7 76 22 148/71 98 Room Air 07/06 2132 98.1 89 20 151/64 99 Room Air 07/06 2058 98.1 89 22 147/73 97 Room Air 07/06 2030 97.9 78 22 131/83 97 Room Air 07/06 2000 Room Air 07/06 1847 97.9 103 22 130/54 97 Room Air 07/06 1755 98.2 99 20 161/68 96 07/06 1706 98.1 71 20 130/47 94 07/06 1636 97.9 93 20 144/54 99 07/06 1621 97.3 87 20 114/47 96 07/06 1143 97.9 07/06 1057 101 20 132/75 97 07/06 0901 Room Air I&O 07/07 0000 07/06 1600 07/06 0800 Intake Total 930 0 1069 Output Total 800 700 960 Balance 130 -700 109 General Appearance No acute distress Lungs Scattered rhonchi. Otherwise clear to auscultation Cardiovascular Regular rate and rhythm Abdomen Normal bowel sounds, Soft, No discernible tenderness Extremities No cyanosis, No clubbing Psych/Mental Status Confused, slightly lethargic LAB Results Laboratory Tests 07/07 0607 Chemistry Plasma Sodium Pending Plasma Potassium Pending Plasma Chloride Pending CO2 (Enzymatic) Pending BUN Pending Creatinine Pending Est GFR ( Amer) Pending Est GFR (Non-Af Amer) Pending Glucose Pending Plasma Calcium Pending Hematology WBC (4.5 - 11.5 K/uL) 8.9 RBC (4.50 - 5.90 M/uL) 2.98 Hgb (13.5 - 17.5 gm/dL) 8.3 Hct (41.0 - 53.0 %) 25.8 MCV (80 - 100 fL) 87 MCH (26 - 34 pg) 28 RDW (11.6 - 14.8 %) 14.8 Neut % (Auto) (50 - 75 %) 72.9 Lymph % (Auto) (25 - 40 %) 11.8 [place] % (Auto) (3 - 14 %) 7.6 Eos % (Auto) (0 - 4 %) 7.2 Baso % (Auto) (0 - 2 %) 0.5 Plt Count, EDTA (150 - 400 K/uL) 249 PUBS MCHC (31 - 37 g/dL) 32 Assessment and Plan Problem List 1. Mesenteric ischemia Status Chronic Onset Date Unknown Plan -No significant pain at this time -Clear liquid diet -Plan discharge to jail facility with comfort measures/hospice care 2. Anemia Status Chronic Onset Date Unknown Plan -Improved -No further therapy. -Plan discharge to jail facility with comfort measures/hospice care 3. Dementia Plan -Stable -No further evaluation 4. Altered mental status, unspecified Plan -See above -No further evaluation 5. Urinary tract infection Plan -Patient received Rocephin IV -No further evaluation/no ongoing treatment -Patient to be discharged to comfort measures only, hospice care Current status: Fair, improved Anticipated discharge date: When discharge planning has arrange for placement for comfort care/hospice. Anticipated discharge placement: alf facility Patient care time: Time spent in chart review, patient interview, physical exam, CPOE, and care documentation: Greater than 30 minutes Visit to patient today: 1 Complexity of care: Moderate The patient's family has requested the patient be placed on comfort measures only. They wish placement in jail facility with comfort measures/ hospice care. Awaiting discharge planning's placement of patient at this time. No medical indication for further hospitalization. E&M Codes Rounding: Inpt-Moderate/65728 Discharge: Inpt >30 min spent/91261
[2016-07-08] VITALS (8 sets, daily range): BP systolic 120–155; BP diastolic 52–87
--- NOTE | 2016-07-08 08:32 | Progress Note ---
Subjective General The patient is a 89-year-old white male with a significant past make a history of who presented to [facility] emergency room on the day of admission secondary abdominal pain. [facility] ER evaluation was consistent with exacerbation of pain related to a potential ischemic mesentery and hypotension. Secondary to the above, the patient was admitted for further evaluation and treatment by Nick Royal M.D. Patient is not able to engage in meaningfull conversation by denies any pain, Alert seems comfortable ROS: Constitional: Negative for fever MKS System: negative for pain Neuro: Alert but disoriented Physical Exam Vital Signs / I&Os Vital Signs Date Time Temp Pulse Resp B/P Pulse O2 O2 Flow FiO2 Ox Delivery Rate 07/08 0613 99.1 07/08 0552 100.4 76 18 145/74 94 Room Air 07/08 0535 155/87 07/08 0323 97.7 67 16 149/63 94 Room Air 07/08 0118 93 150/79 07/07 2249 97.5 104 16 173/90 94 Room Air 07/07 1826 98.8 92 18 156/108 95 Room Air 07/07 1732 92 18 156/108 95 07/07 1437 98.1 72 18 122/87 94 Room Air 07/07 1251 98.4 65 18 110/65 96 Room Air I&O 07/08 0000 07/07 1600 07/07 0800 Intake Total 140 20 958 Output Total 575 350 Balance 140 -555 608 General Appearance No acute distress Lungs Clear to auscultation Cardiovascular Normal exam, Regular rate and rhythm, Normal S1 and S2 Abdomen Normal bowel sounds, Soft, No tenderness Extremities No edema Assessment and Plan Problem List 1. Mesenteric ischemia Status Chronic Onset Date Unknown Plan comfort measures only awaiting for Hospice SNIF palcement 2. Urinary tract infection Plan Treated with Rocephin resolved 3. Dementia Plan stable continue current management 4. Anemia Status Chronic Onset Date Unknown Plan no more blood work
--- NOTE | 2016-07-08 08:32 | Progress Note ---
Subjective General The patient is a 89-year-old white male with a significant past make a history of who presented to [facility] emergency room on the day of admission secondary abdominal pain. [facility] ER evaluation was consistent with exacerbation of pain related to a potential ischemic mesentery and hypotension. Secondary to the above, the patient was admitted for further evaluation and treatment by Nick Royal M.D. Patient is not able to engage in meaningfull conversation by denies any pain, Alert seems comfortable ROS: Constitional: Negative for fever MKS System: negative for pain Neuro: Alert but disoriented Physical Exam Vital Signs / I&Os Vital Signs Date Time Temp Pulse Resp B/P Pulse O2 O2 Flow FiO2 Ox Delivery Rate 07/08 0613 99.1 07/08 0552 100.4 76 18 145/74 94 Room Air 07/08 0535 155/87 07/08 0323 97.7 67 16 149/63 94 Room Air 07/08 0118 93 150/79 07/07 2249 97.5 104 16 173/90 94 Room Air 07/07 1826 98.8 92 18 156/108 95 Room Air 07/07 1732 92 18 156/108 95 07/07 1437 98.1 72 18 122/87 94 Room Air 07/07 1251 98.4 65 18 110/65 96 Room Air I&O 07/08 0000 07/07 1600 07/07 0800 Intake Total 140 20 958 Output Total 575 350 Balance 140 -555 608 General Appearance No acute distress Lungs Clear to auscultation Cardiovascular Normal exam, Regular rate and rhythm, Normal S1 and S2 Abdomen Normal bowel sounds, Soft, No tenderness Extremities No edema Assessment and Plan Problem List 1. Mesenteric ischemia Status Chronic Onset Date Unknown Plan comfort measures only awaiting for Hospice SNIF palcement 2. Urinary tract infection Plan Treated with Rocephin resolved 3. Dementia Plan stable continue current management 4. Anemia Status Chronic Onset Date Unknown Plan no more blood work
[2016-07-09 02:33] VITALS: BP 133/79
--- NOTE | 2016-07-09 07:49 | Progress Note ---
Subjective General The patient is a 89-year-old white male with a significant past make a history of who presented to [facility] emergency room on the day of admission secondary abdominal pain. [facility] ER evaluation was consistent with exacerbation of pain related to a potential ischemic mesentery and hypotension. Secondary to the above, the patient was admitted for further evaluation and treatment by Nick Royal M.D. Still confused some but denies any pain, nausea vomiting dyapnea or cp, no coughing Review of system: GI: Negative for nausea vomiting Respiratory: Negative for dyspnea and chest pain Physical Exam Vital Signs / I&Os Vital Signs Date Time Temp Pulse Resp B/P Pulse O2 O2 Flow FiO2 Ox Delivery Rate 07/09 0233 99.0 66 17 133/79 96 Room Air 07/08 2316 98.8 75 16 129/72 97 Room Air 07/08 1851 99.1 79 15 120/55 98 Room Air 07/08 1802 87 15 131/52 98 07/08 1454 99.1 07/08 1448 107 20 134/57 96 Room Air 0.0 I&O 07/09 0000 07/08 1600 07/08 0800 Intake Total 478 768 2442 Output Total 200 1200 Balance 580 720 627 Lungs Clear to auscultation Cardiovascular Regular rate and rhythm, Normal S1 and S2, No murmurs, gallops, rubs Abdomen Normal bowel sounds, Soft, No tenderness Extremities No edema Assessment and Plan Problem List 1. Mesenteric ischemia Status Chronic Onset Date Unknown Plan Stable comfort measurs only, to HOPICE and placement 2. Dementia Plan waiting for SNIF 3. Anemia Status Chronic Onset Date Unknown Plan stable
--- NOTE | 2016-07-09 07:49 | Progress Note ---
Subjective General The patient is a 89-year-old white male with a significant past make a history of who presented to [facility] emergency room on the day of admission secondary abdominal pain. [facility] ER evaluation was consistent with exacerbation of pain related to a potential ischemic mesentery and hypotension. Secondary to the above, the patient was admitted for further evaluation and treatment by Nick Royal M.D. Still confused some but denies any pain, nausea vomiting dyapnea or cp, no coughing Review of system: GI: Negative for nausea vomiting Respiratory: Negative for dyspnea and chest pain Physical Exam Vital Signs / I&Os Vital Signs Date Time Temp Pulse Resp B/P Pulse O2 O2 Flow FiO2 Ox Delivery Rate 07/09 0233 99.0 66 17 133/79 96 Room Air 07/08 2316 98.8 75 16 129/72 97 Room Air 07/08 1851 99.1 79 15 120/55 98 Room Air 07/08 1802 87 15 131/52 98 07/08 1454 99.1 07/08 1448 107 20 134/57 96 Room Air 0.0 I&O 07/09 0000 07/08 1600 07/08 0800 Intake Total 277 618 4931 Output Total 200 1200 Balance 580 720 627 Lungs Clear to auscultation Cardiovascular Regular rate and rhythm, Normal S1 and S2, No murmurs, gallops, rubs Abdomen Normal bowel sounds, Soft, No tenderness Extremities No edema Assessment and Plan Problem List 1. Mesenteric ischemia Status Chronic Onset Date Unknown Plan Stable comfort measurs only, to HOPICE and placement 2. Dementia Plan waiting for SNIF 3. Anemia Status Chronic Onset Date Unknown Plan stable
[2016-07-09 14:52] VITALS: BP 132/63
[2016-07-09 18:47] VITALS: BP 146/91
[2016-07-09 22:30] VITALS: BP 152/79
[2016-07-10 02:05] VITALS: BP 149/75
[2016-07-10 07:12] VITALS: BP 135/85
--- NOTE | 2016-07-10 07:50 | Progress Note ---
Subjective General he patient is a 89-year-old white male with a significant past make a history of who presented to [facility] emergency room on the day of admission secondary abdominal pain. [facility] ER evaluation was consistent with exacerbation of pain related to a potential ischemic mesentery and hypotension. Secondary to the above, the patient was admitted for further evaluation and treatment by Nick Royal M.D. Patient is confused, mumbling, not able to carry any conversation, but denies any pain Physical Exam Vital Signs / I&Os Vital Signs Date Time Temp Pulse Resp B/P Pulse O2 O2 Flow FiO2 Ox Delivery Rate 07/10 0712 98.8 93 17 135/85 99 Room Air 07/10 0205 98.6 70 17 149/75 97 Room Air 07/10 0130 Room Air 07/09 2230 98.2 79 16 152/79 98 Room Air 07/09 1847 98.1 95 17 146/91 99 Room Air 07/09 1640 Room Air 07/09 1452 98.4 77 17 132/63 99 Room Air 07/09 0848 Room Air 0.0 I&O 07/10 0000 07/09 1600 07/09 0800 Intake Total 661 1195 2039 Output Total 175 462 300 Balance 897 777 6364 Lungs Clear to auscultation Cardiovascular Regular rate and rhythm, Normal S1 and S2, No murmurs, gallops, rubs Abdomen Normal bowel sounds, Soft, No tenderness Extremities No edema Assessment and Plan Problem List 1. Mesenteric ischemia Status Chronic Onset Date Unknown Plan stable, on Hospice now, awaiting for placement 2. Anemia Status Chronic Onset Date Unknown Plan was stable last time checked comfort measures only 3. Urinary tract infection
--- NOTE | 2016-07-10 07:50 | Progress Note ---
Subjective General he patient is a 89-year-old white male with a significant past make a history of who presented to [facility] emergency room on the day of admission secondary abdominal pain. [facility] ER evaluation was consistent with exacerbation of pain related to a potential ischemic mesentery and hypotension. Secondary to the above, the patient was admitted for further evaluation and treatment by Nick Royal M.D. Patient is confused, mumbling, not able to carry any conversation, but denies any pain Physical Exam Vital Signs / I&Os Vital Signs Date Time Temp Pulse Resp B/P Pulse O2 O2 Flow FiO2 Ox Delivery Rate 07/10 0712 98.8 93 17 135/85 99 Room Air 07/10 0205 98.6 70 17 149/75 97 Room Air 07/10 0130 Room Air 07/09 2230 98.2 79 16 152/79 98 Room Air 07/09 1847 98.1 95 17 146/91 99 Room Air 07/09 1640 Room Air 07/09 1452 98.4 77 17 132/63 99 Room Air 07/09 0848 Room Air 0.0 I&O 07/10 0000 07/09 1600 07/09 0800 Intake Total 661 1195 2039 Output Total 175 462 300 Balance 693 945 9491 Lungs Clear to auscultation Cardiovascular Regular rate and rhythm, Normal S1 and S2, No murmurs, gallops, rubs Abdomen Normal bowel sounds, Soft, No tenderness Extremities No edema Assessment and Plan Problem List 1. Mesenteric ischemia Status Chronic Onset Date Unknown Plan stable, on Hospice now, awaiting for placement 2. Anemia Status Chronic Onset Date Unknown Plan was stable last time checked comfort measures only 3. Urinary tract infection
[2016-07-10 11:06] VITALS: BP 199/69
[2016-07-10 11:40] VITALS: BP 144/83
[2016-07-10 18:10] VITALS: BP 139/49
[2016-07-10 22:29] VITALS: BP 127/67
[2016-07-11 02:46] VITALS: BP 114/64
[2016-07-11 07:02] VITALS: BP 135/76
--- NOTE | 2016-07-11 09:52 | Progress Note ---
Subjective General sitting on chair, cofused, denies anyl pain, slept well, eating fine Physical Exam Vital Signs / I&Os Vital Signs Date Time Temp Pulse Resp B/P Pulse O2 O2 Flow FiO2 Ox Delivery Rate 07/11 0843 Room Air 0.0 07/11 0702 99.3 95 20 135/76 97 Room Air 0.0 07/11 0258 Room Air 07/11 0246 62 14 114/64 99 07/11 0001 Room Air 07/10 2229 98.4 64 15 127/67 98 Room Air 0.0 07/10 1810 98.8 70 18 139/49 96 Room Air 07/10 1621 Room Air 0.0 07/10 1140 98.2 88 17 144/83 100 07/10 1106 37.4 0.0 I&O 07/11 0000 07/10 1600 07/10 0800 Intake Total 60 1045 640 Output Total 1250 825 315 Balance -1190 220 325 Lungs Clear to auscultation Cardiovascular Regular rate and rhythm, Normal S1 and S2, No murmurs, gallops, rubs Abdomen Normal bowel sounds, Soft, No tenderness Extremities No edema Assessment and Plan Problem List 1. Mesenteric ischemia Status Chronic Onset Date Unknown Plan stablize no symptoms now 2. Dementia Plan is on hospice care awaiting for SNIF placement 3. Anemia Status Chronic Onset Date Unknown Plan stable last time was check no more blood work
[2016-07-11 10:17] VITALS: BP 111/56
[2016-07-11 12:15] VITALS: BP 111/56
--- NOTE | 2016-07-11 13:07 | DISCHARGE SUMMARY ---
ADMIT DATE: 07/06/2016 DISCHARGE DATE: 07/11/2016 DISCHARGE DIAGNOSES: 1. Mesenteric ischemia 2. Dementia 3. Anemia BRIEF HISTORY: This is an 89-year-old white male who was admitted on 07/05/2016, presented to the emergency department with abdominal pain and hypotension and evaluation was consistent with mesenteric ischemia. The patient had similar episode before and was admitted in [facility] for that. The patient had pressure in the lower abdomen. No fever or chills. The patient was hypotensive with a systolic blood pressure down to 80. The patient also had dementia, was not able to engage in a meaningful conversation, so decision was made in the emergency with discussion with the family the patient to have supportive treatment. HOSPITAL COURSE: The patient was put on n.p.o. and bowel protocol with pain management of Tylenol 640 four times a day and IV hydration and also pain management and on the discussion that the patient and family had with the hospitalist, decision was made that patient to be COMFORT CARE MEASURES ONLY and transferred to hospice care through the [facility] and this process has gone through the last few days and finally the [facility] approved the patient's hospice care. Today, she is being transferred today to the SNF for comfort measures and hospice care. The patient otherwise doing okay. DISCHARGE INSTRUCTIONS/MEDICATIONS: Discharge medications will be metoprolol 12.5 mg p.o. twice a day, Protonix 40 mg daily. The patient's pain will be managed with hospice in the facility and also Tylenol 650 four times a day as needed.
== END 2016-07-11 13:45 | DRG 394 ==
LOC: ED SRH 13:55 → TRANS SRH 16:37 → ACUTE2 SRH 17:50
PROVIDERS: ADMIT Emergency Medicine
PROC: 30233N1 Transfusion of Nonautologous Red Blood Cells into Peripheral Vein, Percutaneous Approach (ICD-10-PCS; principal; 2016-07-06)
DX: K55.1 Chronic vascular disorders of intestine (principal); N39.0 Urinary tract infection, site not specified; I95.9 Hypotension, unspecified; D64.9 Anemia, unspecified; G30.9 Alzheimer's disease, unspecified; F02.80 Dementia in other diseases classified elsewhere, unspecified severity, without behavioral disturbance, psychotic disturbance, mood disturbance, and anxiety
CPT/HCPCS: 29230; 29247; 29251; 29259; 29264; 83475; 83480; 83741; 83742; 83805; 84190; 85241; 85243; 86045; 90001; 90004; 90047; 90074; 90098; 90100; 90155; 90469; 90616; 91004; 91320; 91544; 92031; 92235; 92530; 92610; 92720; 92760; 92761; 92762; 92763; 92764; 92765; 92766; 92767; 94060; 95059